=== PATIENT | female | born 1960 | race Two or more races ===

== ENCOUNTER 2024-01-16 04:17 | Emergency (ER) | payer MEDICAID, OTHER ==
[~2024-01-16] VITALS: Ht 160 cm; Wt 83.9 kg
[2024-01-16] MEDS ORDERED: KETOROLAC TROMETHAMINE 15 MG/ML VIAL ONE (04:49)
[2024-01-16] MEDS ORDERED: ONDANSETRON HCL/PF 4 MG/2 ML VIAL ONE (04:49)
[2024-01-16] MEDS: KETOROLAC TROMETHAMINE 15 MG/ML VIAL IV ONE (05:01)
[2024-01-16] MEDS: ONDANSETRON HCL/PF 4 MG/2 ML VIAL IVP ONE (05:01)
[2024-01-16 05:08] LABS: BASOPHILS % (AUTO) 0.4 % (0.0-2.0); EOSINOPHILS # (AUTO) 0.1 K/uL (0.0-0.7); EOSINOPHILS % (AUTO) 1.6 % (0.0-6.0); HEMATOCRIT 36 % (33-45); LYMPHOCYTES # (AUTO) 1.9 K/uL (0.8-4.8); LYMPHOCYTES % (AUTO) 27.3 % (20.0-44.0); MEAN CORPUSCULAR HEMOGLOBIN 29 PG (26.0-33.0); MEAN CORPUSCULAR HGB CONC 33 g/dl (31.0-36.0); MEAN CORPUSCULAR VOLUME 87 fL (82-100); MONOCYTES # (AUTO) 0.5 K/uL (0.1-1.30); NEUTROPHILS # (AUTO) 4.5 K/uL (1.8-8.9); NEUTROPHILS % (AUTO) 63.7 % (43.0-81.0); PLATELET COUNT (AUTO) 245 K/uL (150-450); RED BLOOD CELL COUNT(AUTO) 4.14 MIL/uL (4.0-5.2); RED CELL DISTRIBUTION WIDTH 13.5 % (11.5-15.0)
[2024-01-16 05:08] LABS: APPEARANCE,URINE CLEAR (CLEAR); BILIRUBIN,URINE NEGATIVE (NEGATIVE); BLOOD, URINE TRACE-INTA Ery/uL (NEGATIVE); COLOR,URINE YELLOW (YELLOW); KETONES,URINE NEGATIVE (NEGATIVE); LEUKOCYTE ESTERASE ,URINE 2+ (NEGATIVE); NITRITE, URINE NEGATIVE (NEGATIVE); PROTEIN,URINE NEGATIVE (NEGATIVE); UGLUCOSE NEGATIVE (NEGATIVE); UROBILINOGEN,URINE 0.2 EU/dL (0.2)
[2024-01-16 05:09] LABS: ADD URINE CULTURE YES; BACTERIA,URINE Few /HPF (None Seen); SQUAMOUS EPITHELIAL CELL,UR Few /HPF (None Seen)
[2024-01-16 05:18] LABS: CREATININE 0.9 mg/dL (0.6-1.3); POTASSIUM 3.9 mmol/L (3.5-5.1)
[2024-01-16] MEDS ORDERED: CEPH500C2 PO (05:23)
[2024-01-16] MEDS: CEFTRIAXONE 1GM BAG (ER ONLY) 1 GM/50 ML PIGGYBACK IV ONE (05:23)
[2024-01-16 05:24] LABS: ALBUMIN 3.7 g/dL (3.4-5.0); BILIRUBIN,DIRECT 0.1 mg/dL (0.0-0.2); BILIRUBIN,TOTAL 0.4 mg/dL (0.2-1.0); TOTAL PROTEIN, SERUM 7.3 g/dL (6.4-8.2)
[2024-01-16] MEDS ORDERED: IV NS 0.9% 250 ML IV ONE (05:37)
[2024-01-16] MEDS ORDERED: CT SWABBABLE VALVE TRANS SET 1 EA INFUS.SET MC ONE (05:37)
[2024-01-16] MEDS ORDERED: IOHEXOL-300 100 ML VIAL IV ONE (05:37)
[2024-01-16] MEDS ORDERED: LACT10SO58 PO (07:07)
[2024-01-16 07:14] VITALS: BP 140/80; TEMP 98; O2SAT 99
== END 2024-01-16 07:19 | disposition home or self-care (01) ==
LOC: ER 04:32
DX: N39.0 Urinary tract infection, site not specified (principal); R10.31 Right lower quadrant pain; I10 Essential (primary) hypertension
CPT/HCPCS: 99285; 74177; 96365; 96375; 85025; 80048; 87086; 83690; 80076; 81001; 36415; J2405; J7050; J0696; Q9967; J1885

== ENCOUNTER 2024-01-18 00:21 | Emergency (ER) | payer OTHER ==
[~2024-01-18] VITALS: Ht 160 cm; Wt 72.6 kg
[~2024-01-18 00:21] MED LIST: CEPH500C2 PO; LACT10SO58 PO
[2024-01-18] MEDS ORDERED: ONDANSETRON HCL/PF 4 MG/2 ML VIAL ONE (01:38)
[2024-01-18] MEDS ORDERED: KETOROLAC TROMETHAMINE 15 MG/ML VIAL ONE ×2 (01:38→05:35)
[2024-01-18] MEDS: ONDANSETRON HCL/PF 4 MG/2 ML VIAL IVP ONE (01:40)
[2024-01-18] MEDS: KETAMINE HCL(200MG/20ML) 10 MG/ML VIAL IV ONE (01:40)
[2024-01-18] MEDS: IV NS 0.9% 1,000 ML BAG IV ONE (01:40)
[2024-01-18] MEDS: KETOROLAC TROMETHAMINE 15 MG/ML VIAL IV ONE ×2 (01:40→05:36)
[2024-01-18 01:41] LABS: BASOPHILS % (AUTO) 0.3 % (0.0-2.0); EOSINOPHILS # (AUTO) 0.1 K/uL (0.0-0.7); EOSINOPHILS % (AUTO) 0.9 % (0.0-6.0); HEMATOCRIT 37 % (33-45); HEMOGLOBIN 12.3 g/dL (11.5-14.8); LYMPHOCYTES # (AUTO) 1.9 K/uL (0.8-4.8); MEAN CORPUSCULAR HEMOGLOBIN 29 PG (26.0-33.0); MEAN CORPUSCULAR HGB CONC 34 g/dl (31.0-36.0); MEAN CORPUSCULAR VOLUME 88 fL (82-100); MONOCYTES # (AUTO) 0.4 K/uL (0.1-1.30); MONOCYTES % (AUTO) 5.9 % (2.0-12.0); NEUTROPHILS # (AUTO) 4.7 K/uL (1.8-8.9); NEUTROPHILS % (AUTO) 65.9 % (43.0-81.0); PLATELET COUNT (AUTO) 255 K/uL (150-450); RED BLOOD CELL COUNT(AUTO) 4.18 MIL/uL (4.0-5.2); RED CELL DISTRIBUTION WIDTH 13.5 % (11.5-15.0); WHITE BLOOD COUNT (AUTO) 7.2 K/uL (4.3-11.0)
[2024-01-18] MEDS ORDERED: IOHEXOL-300 100 ML VIAL IV ONE (01:42)
[2024-01-18] MEDS ORDERED: CT SWABBABLE VALVE TRANS SET 1 EA INFUS.SET MC ONE (01:42)
[2024-01-18 01:52] LABS: INR 1.02 (0.91-1.10); PARTIAL THROMBOPLASTIN TIME 26.2 SEC (24.3-34.3); PROTHROMBIN TIME 10.8 SECS (9.2-11.1)
[2024-01-18 02:07] LABS: ALBUMIN 3.8 g/dL (3.4-5.0); CALCIUM, SERUM 9.1 mg/dL (8.5-10.1); CREATININE 0.7 mg/dL (0.6-1.3); POTASSIUM 3.6 mmol/L (3.5-5.1); TOTAL PROTEIN, SERUM 7.7 g/dL (6.4-8.2)
[2024-01-18 02:08] LABS: BILIRUBIN,DIRECT 0.1 mg/dL (0.0-0.2); BILIRUBIN,TOTAL 0.4 mg/dL (0.2-1.0)
[2024-01-18 02:30] LABS: LACTIC ACID 0.9 mmol/L (0.4-2.0)
[2024-01-18] MEDS: MORPHINE SULFATE INJ 2 MG/ML DISP.SYRIN IV ONE (04:23)
[2024-01-18 10:00] VITALS: BP 137/72; TEMP 98.4; O2SAT 98
== END 2024-01-18 10:15 | disposition short-term general hospital (02) ==
LOC: ER 00:24
DX: R10.31 Right lower quadrant pain (principal); Z79.899 Other long term (current) drug therapy
CPT/HCPCS: 99285; 74177; 96374; 96361; 96375; 96376; 85025; 80048; 83605; 83690; 80076; 36415; 85730; J2405; J7030; Q9967; J1885 ×2

== ENCOUNTER 2024-08-01 17:49 | Emergency (ER) | payer OTHER ==
[~2024-08-01] VITALS: Ht 160 cm; Wt 70.8 kg
[2024-08-01] MEDS ORDERED: KETOROLAC TROMETHAMINE 15 MG/ML VIAL ONE (18:33)
[2024-08-01] MEDS ORDERED: LIDOCAINE 5% (PATCH) 1 EA PATCH TP ONE (18:33)
[2024-08-01] MEDS: KETOROLAC TROMETHAMINE 15 MG/ML VIAL IV ONE (18:41)
[2024-08-01] MEDS: LIDOCAINE 5% (PATCH) 1 EA PATCH TP SCH (18:41)
[2024-08-01 20:14] LABS: BASOPHILS % (AUTO) 0.4 % (0.0-2.0); EOSINOPHILS % (AUTO) 0.4 % (0.0-6.0); HEMATOCRIT 33 % (33-45); HEMOGLOBIN 11.6 g/dL (11.5-14.8); LYMPHOCYTES # (AUTO) 1.8 K/uL (0.8-4.8); LYMPHOCYTES % (AUTO) 21.5 % (20.0-44.0); MEAN CORPUSCULAR HEMOGLOBIN 30 PG (26.0-33.0); MEAN CORPUSCULAR HGB CONC 35 g/dl (31.0-36.0); MEAN CORPUSCULAR VOLUME 87 fL (82-100); MONOCYTES # (AUTO) 0.6 K/uL (0.1-1.30); MONOCYTES % (AUTO) 6.9 % (2.0-12.0); NEUTROPHILS # (AUTO) 5.9 K/uL (1.8-8.9); NEUTROPHILS % (AUTO) 70.8 % (43.0-81.0); PLATELET COUNT (AUTO) 241 K/uL (150-450); RED BLOOD CELL COUNT(AUTO) 3.83 MIL/uL (4.0-5.2); RED CELL DISTRIBUTION WIDTH 13.7 % (11.5-15.0); WHITE BLOOD COUNT (AUTO) 8.3 K/uL (4.3-11.0)
[2024-08-01 20:27] LABS: INR 1.02 (0.91-1.10); PROTHROMBIN TIME 10.8 SECS (9.2-11.1)
[2024-08-01 20:43] LABS: CALCIUM, SERUM 8.9 mg/dL (8.5-10.1); CREATININE 0.8 mg/dL (0.6-1.3); POTASSIUM 3.4 mmol/L (3.5-5.1)
[2024-08-01] MEDS ORDERED: MORPHINE SULFATE INJ 2 MG/ML DISP.SYRIN ONE (21:09)
[2024-08-01] MEDS: MORPHINE SULFATE INJ 2 MG/ML DISP.SYRIN IV ONE (21:21)
[2024-08-01] MEDS ORDERED: KETO10TA2 PO ×2 (22:08→22:36)
[2024-08-01] MEDS ORDERED: ACET-2605 PO ×2 (22:08→22:36)
[2024-08-01] MEDS ORDERED: PANT40TA49 PO ×2 (22:08→22:37)
[2024-08-01] MEDS ORDERED: OXYC-128 PO (22:15)
[2024-08-01 22:27] VITALS: BP 129/73; TEMP 98.5; O2SAT 98
== END 2024-08-01 22:28 | disposition home or self-care (01) ==
LOC: ER 17:59
DX: S42.291A Other displaced fracture of upper end of right humerus, initial encounter for closed fracture (principal); E78.5 Hyperlipidemia, unspecified; I10 Essential (primary) hypertension; M25.562 Pain in left knee; W01.0XXA Fall on same level from slipping, tripping and stumbling without subsequent striking against object, initial encounter; Y93.89 Activity, other specified; Y92.89 Other specified places as the place of occurrence of the external cause; Y99.8 Other external cause status
CPT/HCPCS: 29105; 36415; 73030; 73060; 73080; 73200; 73564; 80048; 85025; 85610; 86850; 96372; 96374; 99285; J1885; J2270

== ENCOUNTER 2024-08-05 20:12 | Emergency (ER) | payer OTHER ==
[~2024-08-05] VITALS: Ht 160 cm; Wt 71.7 kg
[~2024-08-05 20:12] MED LIST changes: +ACET-2605 PO; +KETO10TA2 PO; +OXYC-128 PO; +PANT40TA49 PO
[2024-08-05 21:28] VITALS: BP 156/82; TEMP 98
[2024-08-05] MEDS ORDERED: IBUP-1490 PO (22:25)
[2024-08-05 22:40] VITALS: O2SAT 98
== END 2024-08-05 22:45 | disposition home or self-care (01) ==
LOC: ER 20:14
DX: S42.291A Other displaced fracture of upper end of right humerus, initial encounter for closed fracture (principal); I10 Essential (primary) hypertension; Z79.899 Other long term (current) drug therapy; W18.39XA Other fall on same level, initial encounter; Y93.89 Activity, other specified; Y92.89 Other specified places as the place of occurrence of the external cause; Y99.8 Other external cause status

== ENCOUNTER 2024-10-13 09:56 | Emergency (ER) | payer OTHER ==
[~2024-10-13] VITALS: Ht 160 cm; Wt 72.6 kg
[~2024-10-13 09:56] MED LIST changes: +IBUP-1490 PO
[2024-10-13] MEDS ORDERED: MECLIZINE HCL 25 MG TABLET ONE (10:36)
[2024-10-13] MEDS: MECLIZINE HCL 25 MG TABLET PO ONE (10:39)
[2024-10-13 10:40] LABS: BASOPHILS % (AUTO) 0.4 % (0.0-2.0); EOSINOPHILS # (AUTO) 0.1 K/uL (0.0-0.7); EOSINOPHILS % (AUTO) 0.8 % (0.0-6.0); HEMATOCRIT 37 % (33-45); HEMOGLOBIN 12.5 g/dL (11.5-14.8); LYMPHOCYTES # (AUTO) 1.8 K/uL (0.8-4.8); LYMPHOCYTES % (AUTO) 24.8 % (20.0-44.0); MEAN CORPUSCULAR HEMOGLOBIN 30 PG (26.0-33.0); MEAN CORPUSCULAR HGB CONC 34 g/dl (31.0-36.0); MEAN CORPUSCULAR VOLUME 88 fL (82-100); MONOCYTES # (AUTO) 0.4 K/uL (0.1-1.30); MONOCYTES % (AUTO) 5.4 % (2.0-12.0); NEUTROPHILS # (AUTO) 5.1 K/uL (1.8-8.9); NEUTROPHILS % (AUTO) 68.6 % (43.0-81.0); PLATELET COUNT (AUTO) 273 K/uL (150-450); RED BLOOD CELL COUNT(AUTO) 4.22 MIL/uL (4.0-5.2); RED CELL DISTRIBUTION WIDTH 13.3 % (11.5-15.0); WHITE BLOOD COUNT (AUTO) 7.4 K/uL (4.3-11.0)
[2024-10-13 10:49] LABS: CALCIUM, SERUM 9.4 mg/dL (8.5-10.1); CARBON DIOXIDE 27 mmol/L (21-32); CHLORIDE 104 mmol/L (98-107); CREATININE 0.7 mg/dL (0.6-1.3); GLUCOSE 99 mg/dL (74-106); POTASSIUM 3.3 mmol/L (3.5-5.1); SODIUM SERUM 139 mmol/L (136-145); UREA NITROGEN, BLOOD 14 mg/dL (7-18)
[2024-10-13 11:00] LABS: ALANINE AMINOTRANSFERASE 23 U/L (12-78); ALBUMIN 3.9 g/dL (3.4-5.0); ALKALINE PHOSPHATASE 103 U/L (46-116); ASPARTATE AMINOTRANSFERASE 21 U/L (15-37); BILIRUBIN,DIRECT 0.1 mg/dL (0.0-0.2); BILIRUBIN,TOTAL 0.4 mg/dL (0.2-1.0); NT-PRO BNP 69 pg/mL (0-125)
[2024-10-13] MEDS ORDERED: diphenhydrAMINE HCL 50 MG/ML VIAL ONE (11:42)
[2024-10-13] MEDS ORDERED: METOCLOPRAMIDE HCL 10 MG/2 ML VIAL ONE (11:42)
[2024-10-13] MEDS: IV NS 0.9% 1,000 ML BAG IV ONE (11:55)
[2024-10-13] MEDS: diphenhydrAMINE HCL 50 MG/ML VIAL IV ONE (11:56)
[2024-10-13] MEDS: METOCLOPRAMIDE HCL 10 MG/2 ML VIAL IV ONE (11:56)
[2024-10-13] MEDS ORDERED: MECL-159 PO (12:42)
[2024-10-13 13:25] VITALS: BP 146/85; TEMP 98.4; O2SAT 99
== END 2024-10-13 13:25 | disposition home or self-care (01) ==
LOC: ER 10:04
DX: R42 Dizziness and giddiness (principal); R51.9 Headache, unspecified; E78.5 Hyperlipidemia, unspecified; I10 Essential (primary) hypertension; Z79.899 Other long term (current) drug therapy; Z87.19 Personal history of other diseases of the digestive system
CPT/HCPCS: 99285; 96374; 70450; 71045; 96361; 96375; 93005; 85025; 80048; 80076; 36415; 84484; 83880; 82962; J8597; J1200; J2765; J7030